=== PATIENT | female | born 1945 | race Caucasian/White ===

== ENCOUNTER → 2018-01-05 | Outpatient (CLI) | payer MEDICARE, OTHER ==
[~2018-01-05] MED LIST: BARIUM SUSPENSION 2.1% (VANILLA SILQ) 450 ML PO ONE; IOHEXOL 350 MG/ML 100 ML (OMNIPAQUE 350) VIAL IV ONE; NS 250 ML (IVPB) BAG IV ONE
[2018-01-05 07:51] LABS: HEMOGLOBIN 13.3 G/DL (11.5-16.0); MEAN PLATELET VOLUME 10.5 FL (7.4-10.4); RED BLOOD COUNT 4.42 10^6/uL (4.35-5.85); RED CELL DISTRIBUTION WIDTH 13.4 % (10.0-14.5); WHITE BLOOD COUNT 5.1 10^3/uL (4.3-11.0)
[2018-01-05 08:07] LABS: ALANINE AMINOTRANSFERASE 21 U/L (0-55); ALBUMIN 4.2 GM/DL (3.2-4.5); ALKALINE PHOSPHATASE 79 U/L (40-136); BUN/CREATININE RATIO 17; CALCIUM 9.5 MG/DL (8.5-10.1); CARBON DIOXIDE 21 MMOL/L (21-32); CHLORIDE 107 MMOL/L (98-107); CREATININE SERUM 0.84 MG/DL (0.60-1.30); GFR ESTIMATED > 60; GLUCOSE 115 MG/DL (70-105); POTASSIUM 4.1 MMOL/L (3.6-5.0); SODIUM 140 MMOL/L (135-145); TOTAL PROTEIN 6.7 GM/DL (6.4-8.2)
--- NOTE | 2018-01-05 09:34 | Diagnostic Imaging Report ---
PROCEDURE: CT abdomen and pelvis with contrast. TECHNIQUE: Multiple contiguous axial images were obtained through the abdomen and pelvis after administration of intravenous contrast. INDICATION: Abdominal fullness with lower extremity swelling and change in bowel habit. There is mild low-density throughout the liver indicating probable steatosis. In addition, there is an approximately 1 cm low-density focus in the anterior dome of the left lobe of the liver. This could represent a cyst. There is no evidence of pancreatic, gallbladder or splenic lesion. There is an approximately 8.2 x 9.4 x 11 cm fat-containing heterogeneous mass which appears to arise from the right adrenal gland. This indents the upper pole of the right kidney indicating extrarenal location. There are also dense calcifications in the otherwise unremarkable left adrenal gland. There is no evidence of solid renal mass or hydronephrosis. Multiple parapelvic cysts are present on the left. There is no evidence of pathologic adenopathy in the abdomen or pelvis. There is no evidence of free fluid. Small umbilical hernia is noted. The appendix is unremarkable in appearance. Partially opacified urinary bladder is unremarkable. There are calcified fibroids arising from the uterus with the largest being exophytic and extending to the right of midline measuring 6 x 4.6 cm. There is moderate lumbar degenerative disc disease centered at L5-S1. IMPRESSION: 8.2 x 9.4 x 11 cm fat-containing mass in right suprarenal region is compatible with adrenal myolipoma. Otherwise, there is no evidence of acute abnormality. Incidental note is made of small hiatal hernia, fatty infiltration of the liver and L5-S1 degenerative change. There is also a fibroid uterus. Dictated by: Dictated on workstation # [id number]
== END ==
LOC: RAD 07:36
PROVIDERS: ATTEND Family Medicine
DX: K44.9 Diaphragmatic hernia without obstruction or gangrene (principal); K76.0 Fatty (change of) liver, not elsewhere classified; M47.817 Spondylosis without myelopathy or radiculopathy, lumbosacral region; D25.9 Leiomyoma of uterus, unspecified; M79.89 Other specified soft tissue disorders
CPT/HCPCS: 36415; 74177; 80053; 84443; 85027

== ENCOUNTER → 2018-01-31 | Outpatient (CLI) | payer MEDICARE, OTHER | LOC: CARD 11:29 | PROVIDERS: ATTEND Family Medicine | DX: I10 Essential (primary) hypertension (principal); R01.1 Cardiac murmur, unspecified; R60.9 Edema, unspecified | CPT/HCPCS: 93306 ==

== ENCOUNTER → 2018-02-27 | Outpatient (CLI) | payer MEDICARE, OTHER ==
--- NOTE | 2018-02-27 09:45 | Diagnostic Imaging Report ---
PROCEDURE: US Venous Lower Ext Sarmad. TECHNIQUE: Multiple real-time grayscale images were obtained over the lower extremities in various projections, bilaterally. Additional duplex Doppler and color Doppler images were also obtained. INDICATION: Bilateral lower extremity swelling. There is no evidence of right or left lower extremity DVT. Both lower extremity deep venous system shows normal compressibility with normal response to augmentation and Valsalva. No fluid collection or mass is seen. IMPRESSION: No evidence of right or left lower extremity DVT. Dictated by: Dictated on workstation # [id number]
== END ==
LOC: RAD 07:48
PROVIDERS: ATTEND Internal Medicine Interventional Cardiology
DX: M79.89 Other specified soft tissue disorders (principal)
CPT/HCPCS: 93970

== ENCOUNTER → 2019-01-02 | Outpatient (CLI) | payer MEDICARE, OTHER ==
--- NOTE | 2019-01-02 14:25 | Diagnostic Imaging Report ---
INDICATION: Postmenopausal screening. COMPARISON: None. FINDINGS: AP Lumbar Spine: [BMD (g/cm2): 1.100] [T-Score: -0.8] [Z-Score: 0.0] [BMD Previous: na] [BMD % Change: na] LT Hip Neck: [BMD (g/cm2): 0.916] [T-Score: -0.9] [Z-Score: 0.4] LT Hip Total: [BMD (g/cm2):0.876] [T-Score:-1.0] [Z-Score: 0.0] [BMD Previous: na] [BMD % Change: na] RT Hip Neck: [BMD (g/cm2):0.875] [T-Score:-1.2] [Z-Score:0.1] RT Hip Total: [BMD (g/cm2):0.903] [T-score:-0.8] [Z-Score:0.2] [BMD Previous:na] [BMD % Change:na] *Indicates significant change from prior examination based on 95% confidence level. World Health Organization criteria for BMD interpretation classify patients as Normal (T-score at or above -1.0), Osteopenic (T-score between -1.0 and -2.5) or Osteoporotic (T-score at or below -2.5). LIMITATIONS AND MODIFICATION: None. FRACTURE RISK (FRAX SCORE): The ten year probability of (%): Major Osteoporotic Fracture: [9.2] Hip Fracture: [1.3] IMPRESSION: 1. Normal bone mineral density. 2. Baseline examination. 3. See below National Osteoporosis Foundation guidelines on when to potentially initiate pharmacologic therapy. Based on the National Osteoporosis Foundation Guidelines, pharmacologic treatment should be initiated in any of the following, unless clinical conditions suggest otherwise: * Any patient with prior fragility fracture of the hip or vertebrae. A spine fracture indicates 5X risk for subsequent spine fracture and 2X risk for subsequent hip fracture. * Osteoporosis (T-score <-2.5). * Postmenopausal women and men age 50 and older with low bone mass/osteopenia (T-score between -1.0 and -2.5) by DXA and 10-year major osteoporotic fracture greater than 20% or a 10-year probability of hip fracture greater than 3%. These fracture risks are supplied above in the FRAX score, if applicable. * Clinician judgement and/or patient preferences may indicate treatment for people with 10-year fracture probabilities above or below these levels. Dictated by: Dictated on workstation # [id number]
== END ==
LOC: RAD 10:25
PROVIDERS: ATTEND Family Medicine
DX: Z13.820 Encounter for screening for osteoporosis (principal); Z78.0 Asymptomatic menopausal state
CPT/HCPCS: 77080

== ENCOUNTER → 2019-01-09 | Outpatient (CLI) | payer MEDICARE, OTHER ==
--- NOTE | 2019-01-09 12:37 | Diagnostic Imaging Report ---
INDICATION: Routine screening. COMPARISON: 07/22/2014. TECHNIQUE: 2D and 3D bilateral screening mammography was performed with CAD. FINDINGS: Both breasts are heterogeneously dense, limiting the sensitivity of mammography. Benign parenchymal and vascular calcifications are noted bilaterally. No dominant mass or malignant appearing microcalcifications are seen. The axillae are unremarkable. IMPRESSION: No mammographic features suspicious for malignancy are identified. ACR BI-RADS Category 2: Benign findings. Result letter will be mailed to the patient. Note: At least 10% of breast cancer is not imaged by mammography. Dictated by: Dictated on workstation # [id number]
== END ==
LOC: RAD 08:21
PROVIDERS: ATTEND Family Medicine
DX: Z12.31 Encounter for screening mammogram for malignant neoplasm of breast (principal); Z78.0 Asymptomatic menopausal state
CPT/HCPCS: 77067

== ENCOUNTER → 2019-01-18 | Outpatient (CLI) | payer MEDICARE, OTHER ==
[~2019-01-18] MED LIST changes: -BARIUM SUSPENSION 2.1% (VANILLA SILQ) 450 ML PO ONE; +CATHETER FLUSH 10 ML SYR IV PRN; +HOLD METFORMIN - RECEIVED CONTRAST 20 ML VIAL IV SCH; +NS 100 ML (IVPB) BAG IV ONE; -NS 250 ML (IVPB) BAG IV ONE
[2019-01-18 10:47] LABS: BUN/CREATININE RATIO 24; CREATININE SERUM 0.87 MG/DL (0.60-1.30); GFR ESTIMATED > 60
--- NOTE | 2019-01-18 11:58 | Diagnostic Imaging Report ---
PROCEDURE: CT abdomen with contrast only. TECHNIQUE: Multiple contiguous axial images were obtained through the abdomen after the administration of intravenous contrast. Auto Exposure Controls were utilized during the CT exam to meet ALARA standards for radiation dose reduction. INDICATION: Retroperitoneal fatty mass. COMPARISON: Exam compared with study of 01/05/2018. FINDINGS: A right-sided retroperitoneal suprarenal mass with soft tissue and fatty composition measures 9 x 7.9 cm, unchanged. No evidence for its rupture or hemorrhage. It appears encapsulated. The contralateral left adrenal shows a few punctate calcifications, otherwise stable and negative. The kidneys themselves are unremarkable. Mild hepatic steatosis and left lobe cyst, stable. Spleen and pancreas are negative. The aorta is nonaneurysmal. There is no small or large bowel obstruction. There is no ascites. There is partial visualization of a normal appendix. IMPRESSION: Findings remain most compatible with a right-sided adrenal myelolipoma without evidence for its rupture or hemorrhage. No new mass. No change or adverse development. Dictated by: Dictated on workstation # [id number]
== END ==
LOC: RAD 10:09
PROVIDERS: ATTEND Specialist
DX: R93.41 Abnormal radiologic findings on diagnostic imaging of renal pelvis, ureter, or bladder (principal)
CPT/HCPCS: 36415; 74160; 82565; 84520

== ENCOUNTER → 2019-10-15 | Outpatient (CLI) | payer MEDICARE, OTHER | LOC: CARD 08:30 | PROVIDERS: ATTEND Internal Medicine Interventional Cardiology | DX: I35.1 Nonrheumatic aortic (valve) insufficiency (principal); I51.7 Cardiomegaly | CPT/HCPCS: 93306 ==

== ENCOUNTER → 2020-11-10 | Outpatient (CLI) | payer MEDICARE, OTHER | LOC: CARD 10:00 | PROVIDERS: ATTEND Internal Medicine Cardiovascular Disease | DX: I35.1 Nonrheumatic aortic (valve) insufficiency (principal); I35.8 Other nonrheumatic aortic valve disorders | CPT/HCPCS: 93306 ==

== ENCOUNTER → 2020-11-11 | Outpatient (CLI) | payer MEDICARE, OTHER ==
[~2020-11-11] VITALS: Ht 162 cm; Wt 98.0 kg
[~2020-11-11] MED LIST changes: -CATHETER FLUSH 10 ML SYR IV PRN; -HOLD METFORMIN - RECEIVED CONTRAST 20 ML VIAL IV SCH; -IOHEXOL 350 MG/ML 100 ML (OMNIPAQUE 350) VIAL IV ONE; -NS 100 ML (IVPB) BAG IV ONE; +REGADENOSON 0.4 MG/5 ML SYR (LEXISCAN) IV ONE
[2020-11-11] MEDS: CATHETER FLUSH 10 ML SYR IV PRN ×2 (08:17→09:29)
[2020-11-11 09:21] VITALS: BP 169/71
--- NOTE | 2020-11-11 20:19 | STRESS TEST ---
DATE OF SERVICE: 11/11/2020 RESTING AND POST REGADENOSON TECHNETIUM-99M TETROFOSMIN SPECT CT IMAGING ORDERING PHYSICIAN: Dr. Vega. PRIMARY PHYSICIAN: Dr. Wong. CLINICAL DIAGNOSIS: Shortness of breath. Baseline images were carried out after injection of 10.9 mCi of technetium-99m Tetrofosmin. This was followed by 0.4 mg regadenoson and 29.9 mCi of technetium-99m Tetrofosmin for stress imaging. The electrocardiogram showed sinus rhythm at baseline. It did not change significantly with regadenoson infusion. The patient tolerated the procedure well. Review of images at rest and following stress does not indicate any distinct perfusion defects consistent with significant myocardial ischemia or infarction. Gated images show normal global left ventricular systolic function with normal regional wall motion. Left ventricular ejection fraction is calculated to be 83%. CONCLUSIONS: 1. No evidence of any significant myocardial ischemia or infarction on this study. 2. Normal to hyperdynamic left ventricular systolic function without regional wall motion abnormality and with a calculated ejection fraction 83%. Job ID: [id number] DocumentID: [id number] Dictated Date: 11/11/2020 16:38:06 Dandy Tender Date: 11/11/2020 20:18:57 Dictated By: MARLIN VEGA MD, MA, FACP, FACC,
== END ==
LOC: CARD 08:30
PROVIDERS: ATTEND Internal Medicine Cardiovascular Disease
DX: R06.09 Other forms of dyspnea (principal)
CPT/HCPCS: 78452; 93017; A9502

== ENCOUNTER 2021-03-12 08:27 | Outpatient (RCR) | payer MEDICARE, OTHER | END 2021-03-13 | disposition home or self-care (01) | PROVIDERS: ATTEND Orthopaedic Surgery | DX: Z47.1 Aftercare following joint replacement surgery (principal); Z96.651 Presence of right artificial knee joint ==

== ENCOUNTER → 2021-04-13 | Outpatient (RCR) | payer MEDICARE, OTHER | END | disposition home or self-care (01) | PROVIDERS: ATTEND Orthopaedic Surgery | DX: Z47.1 Aftercare following joint replacement surgery (principal); M25.461 Effusion, right knee; Z96.651 Presence of right artificial knee joint ==

== ENCOUNTER 2021-05-07 08:00 | Outpatient (RCR) | payer MEDICARE, OTHER | END 2021-05-11 | disposition home or self-care (01) | PROVIDERS: ATTEND Orthopaedic Surgery | DX: Z47.1 Aftercare following joint replacement surgery (principal); M25.461 Effusion, right knee; Z96.651 Presence of right artificial knee joint ==

== ENCOUNTER 2021-06-02 08:26 | Outpatient (RCR) | payer MEDICARE, OTHER | END 2021-06-02 11:21 | disposition home or self-care (01) | PROVIDERS: ATTEND Orthopaedic Surgery | DX: Z47.1 Aftercare following joint replacement surgery (principal); Z96.651 Presence of right artificial knee joint ==

== ENCOUNTER → 2022-09-10 | Outpatient (RCR) | payer MEDICARE, OTHER | END | disposition home or self-care (01) | PROVIDERS: ATTEND Family Medicine | DX: M54.42 Lumbago with sciatica, left side (principal); M54.41 Lumbago with sciatica, right side; M19.049 Primary osteoarthritis, unspecified hand ==

== ENCOUNTER → 2022-10-11 | Outpatient (RCR) | payer MEDICARE, OTHER | END | disposition home or self-care (01) | PROVIDERS: ATTEND Family Medicine | DX: M54.41 Lumbago with sciatica, right side (principal); M54.42 Lumbago with sciatica, left side; M19.049 Primary osteoarthritis, unspecified hand ==

== ENCOUNTER → 2022-11-11 | Outpatient (RCR) | payer MEDICARE, OTHER | END | disposition home or self-care (01) | PROVIDERS: ATTEND Family Medicine | DX: M54.41 Lumbago with sciatica, right side (principal); M54.42 Lumbago with sciatica, left side; M19.049 Primary osteoarthritis, unspecified hand ==